=== PATIENT | female | born 1970 | race African-American/Black ===

== ENCOUNTER 2019-02-15 11:55 | Emergency (ER) | payer OTHER ==
[~2019-02-15] VITALS: Ht 162.6 cm; Wt 114.8 kg
[2019-02-15 11:55] VITALS: BP 192/129
[~2019-02-15 11:55] MED LIST: BENADRYL ALLE12.5 MG PO; FLEXERIL PO; GLUCOSAMINE-CH1 EA48 PO; NORCO 5-325 TA1 EACH PO
[2019-02-15] MEDS ORDERED: ULTRAM 50MG TAB50 MG PO (13:03)
== END 2019-02-15 13:12 | disposition home or self-care (01) ==
LOC: ER 11:55
DX: M17.11 Unilateral primary osteoarthritis, right knee (principal); Z88.0 Allergy status to penicillin; Z90.49 Acquired absence of other specified parts of digestive tract